=== PATIENT | female | born 1980 | race Two or more races ===

== ENCOUNTER 2017-02-13 11:35 | Emergency (ER) | payer MEDICAID, OTHER ==
[~2017-02-13] VITALS: Ht 160 cm; Wt 64.4 kg
[2017-02-13] MEDS ORDERED: SODIUM CHLORIDE 0.9% 1,000 ML IV ONE (12:03)
[2017-02-13 12:18] LABS: Urine Bilirubin Negative (Negative); Urine Blood Negative /uL (Negative); Urine Color Yellow (Yellow); Urine Glucose Normal (Normal); Urine Mucus FEW (None Seen); Urine Nitrite Negative (Negative); Urine RBC 1 /hpf (0 - 4); Urine Squamous Epithelial Cell MOD /hpf (<5)
[2017-02-13 12:19] LABS: Urine Ketone 4+ (Negative)
[2017-02-13 12:28] VITALS: BP 121/67
== END 2017-02-13 13:28 | disposition home or self-care (01) ==
LOC: ER 11:35
DX: E86.0 Dehydration (principal); N39.0 Urinary tract infection, site not specified
CPT/HCPCS: 81001; 96360